=== PATIENT | male | born 1945 | race Caucasian/White ===

== ENCOUNTER 2018-08-28 05:51 | Day surgery (SDC) | payer MEDICARE, OTHER ==
[2018-08-28] MEDS ORDERED: DEMEROL 50 MG IJ ONE ×2 (05:52)
[2018-08-28] MEDS ORDERED: VERSED 5 MG/5 ML IV ONE (05:52)
[2018-08-28] MEDS ORDERED: Lactated Ringers 1,000 ML IV SCH (06:30)
--- NOTE | 2018-08-28 07:59 | HP ---
DATE OF SURGERY: 08/28/2018 ADMISSION DIAGNOSIS: Follow up for colon cancer. ANTICIPATED PROCEDURE: Colonoscopy. HISTORY OF PRESENT ILLNESS: The patient presents for three year follow up for colon cancer. He has a little bit of symptomatology but not much. PAST MEDICAL HISTORY: ALLERGIES: NONE. MEDICATIONS: Zantac. Aspirin. PAST SURGICAL HISTORY: Major right hemicolectomy. Cholecystectomy. Knee replacement. Eye surgery. SOCIAL HISTORY: Negative. FAMILY HISTORY: Negative. PHYSICAL EXAMINATION: VITAL SIGNS: Normal. CHEST: Clear. COR: Regular. ABDOMEN: No palpable organomegaly or mass. IMPRESSION: Follow up of colon cancer. The patient also had polyps. PLAN: Colonoscopic examination.
[2018-08-28 09:32] VITALS: O2SAT 97
[2018-08-28 09:53] VITALS: BP 147/66; PULSE 79
--- NOTE | 2018-08-28 09:58 | OP ---
SURGERY DATE/TIME: 08/28/2018 0815 PREOPERATIVE DIAGNOSIS: Follow up colon cancer, follow up polyps. POSTOPERATIVE DIAGNOSES: 1) One cecal polyp. 2) Thrombosing external hemorrhoid. PROCEDURES: 1) Colonoscopy complete to cecum. 2) Hot polypectomy x1. SURGEON: Josh Garcia M.D. ANESTHESIA: IV sedation 15 minutes monitored. INDICATION: A patient requiring evaluation. He had colon cancer about ten years ago. He also had polyps. His last exam was three years ago. DESCRIPTION OF PROCEDURE: He was taken to endoscopy. Left lateral decubitus position. IV sedation titrated. Oximetry kept over 90%. Comfort level was excellent. Anal digital examination satisfactory. There was a thrombosed external hemorrhoid located at 1000 hours. The scope was introduced. The remaining rectum shows a small amount of sigmoid was present. Anastomosis was normal. The scope advanced over to the cecum. A left hemicolectomy had been performed. Base of cecum, ileocecal valve and appendiceal orifice was normal except for a 6 mm polyp in the base of the cecum this was picked up and taken with hot biopsy forceps to extinction. Ascending colon, residual transverse colon was normal. Anastomosis normal. Rectum normal. IMPRESSION: Successful hot polypectomy x1. Follow up exam in three years. Additionally, the patient had some irritable bowel syndrome and taking a little bit of Imodium. There were no signs of any colitis today. Anastomosis was excellent. There was no irritation. The patient has about 60% of his original length and he does have a competent ileocecal valve. PLAN: Symptomatic treatment only.
== END 2018-08-28 10:05 | disposition home or self-care (01) ==
LOC: SDC 05:51
PROVIDERS: ATTEND Surgery
DX: Z08 Encounter for follow-up examination after completed treatment for malignant neoplasm (principal); Z12.11 Encounter for screening for malignant neoplasm of colon; D12.0 Benign neoplasm of cecum; K58.9 Irritable bowel syndrome, unspecified; K64.5 Perianal venous thrombosis; Z85.038 Personal history of other malignant neoplasm of large intestine; Z90.49 Acquired absence of other specified parts of digestive tract; Z86.010 Personal history of colon polyps
CPT/HCPCS: 88305; J2175; J2250

== ENCOUNTER 2020-11-17 10:48 | Day surgery (SDC) | payer MEDICARE, OTHER ==
[2020-11-17] MEDS ORDERED: Lactated Ringers 1,000 ML IV ONE (11:11)
[2020-11-17] MEDS ORDERED: Lactated Ringers 1,000 ML IV SCH (11:30)
[2020-11-17] MEDS ORDERED: DIPRIVAN 200 MG/20 ML IV ONE (12:41)
[2020-11-17] MEDS ORDERED: Xylocaine-Mpf 2% 5 Ml Vial ONE (12:41)
[2020-11-17 14:37] VITALS: BP 184/73; PULSE 52; O2SAT 97
[2020-11-17 15:44] LABS: 027 TOX PROD PRESUMPTIVE NEGATIVE (NEGATIVE); TOXIGENIC C. DIFF ORG NEGATIVE (NEGATIVE)
--- NOTE | 2020-11-18 11:21 | OP ---
SURGERY DATE: 11/17/2020 SURGERY TIME: 1255 PREOPERATIVE DIAGNOSIS: 1. PATIENT HAS EPIGASTRIC PAIN, NAUSEA, FULLNESS, HISTORY OF REFLUX. 2. HE HAS A CHANGE IN BOWEL HABITS. HE HAS SIGNIFICANT DIARRHEA. HE HAS A HISTORY OF COLON CANCER. POSTOPERATIVE DIAGNOSIS: 1. NEARLY HEALED ULCERS. 2. PRESBYESOPHAGUS. 3. ILEOCECAL VALVE ULCER. 4. NORMAL ANASTOMOSIS. PROCEDURE: 1. EGD with cold biopsy. 2. Colonoscopy with cold biopsy. SURGEON: Josh Garcia M.D. ANESTHESIA: MAC. COMPLICATIONS: None. CONDITION: Stable. INDICATION: Patient has had both upper and lower issues. They have not resolved. His diarrhea improved slightly with Flagyl. He still has his fullness in the upper abdomen and some in the lower abdomen. He has epigastric pain. He has some reflux symptoms. He has a history of colon cancer. He currently has severe diarrhea. OPERATIVE PROCEDURE: He was taken to endoscopy. Left lateral decubitus position. Phrenoesophageal junction cannulated. Esophagus normal down to the esophagogastric junction. Small rim of esophagitis grade 2/4. No hiatal hernia. Fundus/body satisfactory. Patient had multiple prepyloric ulcers which were nearly healed. A medical detail representative biopsy for H-pylori. Pylorus satisfactory. Duodenal bulb satisfactory. Second portion satisfactory. Scope withdrawn, looped upon itself. No hiatal hernia. Anal digital examination satisfactory. Stool sent for Clostridium difficile, O&P, and stool pathogens. Rectum normal. Rectocolonic anastomosis normal. Descending colon/splenic flexure gently curved. Transverse colon/hepatic flexure normal. Descending colon, base of the cecum. The ileocecal valve was slightly prominent and there was a 1 cm ulcer on the ileocecal valve. Just a cm away from this, a medical detail representative biopsy was taken. The appendiceal orifice was normal. The base of the cecum normal, but this ileocecal valve just seemed a little prominent, almost inflamed. The ascending colon above this seemed satisfactory. Hepatic, transverse, splenic, descending, anastomosis, rectum, anus. The patient tolerated the procedure satisfactory. He is already on some Pepcid. Azulfidine 500 mg PO bid was added to the regimen. The patient should check back with the office on his improvement or failure.
== END 2020-11-17 14:30 | disposition home or self-care (01) ==
LOC: SDC 10:48
PROVIDERS: ATTEND Surgery
DX: K63.3 Ulcer of intestine (principal); K22.8 Other specified diseases of esophagus; R19.7 Diarrhea, unspecified; R10.13 Epigastric pain; R11.0 Nausea; E11.9 Type 2 diabetes mellitus without complications; Z79.899 Other long term (current) drug therapy; Z79.4 Long term (current) use of insulin; Z85.038 Personal history of other malignant neoplasm of large intestine
CPT/HCPCS: 87081; 87328; 87329; 87493; 99100; J2704

== ENCOUNTER 2022-03-15 05:50 | Day surgery (SDC) | payer MEDICARE, OTHER ==
--- NOTE | 2022-03-13 15:08 | HP ---
DATE OF SURGERY: 03/15/2022 HISTORY OF PRESENT ILLNESS: The patient is a 77-year-old male presented for colonoscopy. The last colonoscopy was three years ago. The patient has a personal history of colon cancer and he got resection 21 years ago. He denies any GI complaints at this time. PAST MEDICAL HISTORY: Hypertension, gastroesophageal reflux disease, heart disease, chronic obstructive pulmonary disease, colon cancer. PAST SURGICAL HISTORY: Cataracts. Knee replacement. Cholecystectomy. Colon resection. ALLERGIES: NKDA. MEDICATIONS: Aspirin, Pepcid, gabapentin, ibuprofen, Singulair, vitamin D, loratadine, atenolol, sulfasalazine, hydrochlorothiazide. FAMILY HISTORY: None reported. SOCIAL HISTORY: Former smoker. REVIEW OF SYSTEMS: CONSTITUTIONAL: Denies fever or chills. CHEST: Denies shortness of breath. CVS: Denies chest pain. ABDOMEN: Denies abdominal pain. PHYSICAL EXAMINATION: GENERAL: No acute distress. CHEST: Nonlabored. No shortness of breath. CVS: Regular rate and rhythm. ABDOMEN: Soft. IMPRESSION: History of colon cancer. PLAN: Colonoscopy with Dr. Josh Garcia. As dictated by Isabel Vega NP.
[2022-03-15] MEDS ORDERED: Lactated Ringers 1,000 ML IV SCH (06:30)
[2022-03-15] MEDS ORDERED: DIPRIVAN 200 MG/20 ML IV ONE ×2 (09:06→09:25)
[2022-03-15 10:11] VITALS: BP 162/81; PULSE 66; O2SAT 98
--- NOTE | 2022-03-15 10:24 | OP ---
SURGERY DATE/TIME: 03/15/2022 0858 PREOPERATIVE DIAGNOSES: 1) Follow up colon cancer. 2) Diarrhea. POSTOPERATIVE DIAGNOSES: 1) Successful polypectomy x1. 2) Successful stool sampling for clostridium difficile, ova and parasite, stool pathogens. PROCEDURES: 1) Colonoscopy complete to cecum. 2) Hot polypectomy ascending colon 6 mm. 3) Stool samples for clostridium difficile, ova and parasite, stool pathogens. SURGEON: Josh Garcia M.D. ANALYSIS MGR: Mendez Fink D.O. ANESTHESIA: General. COMPLICATIONS: None. CONDITION: Stable. INDICATION: The patient presents for colonoscopy. DESCRIPTION OF PROCEDURE: Taken to endoscopy. Left lateral decubitus position. Anal digital examination satisfactory. Prostate satisfactory. Scope advanced to the cecum. Base of the cecum was excellent. There was a fairly large lipoma of the anterior lip of the valve which was satisfactory. Appendiceal orifice was well seen. The base was all well seen. Stool was sent for clostridium difficile, ova and parasite and stool pathogen. Coming up the ascending colon was satisfactory. Hepatic flexure satisfactory. Transverse colon satisfactory. Splenic flexure a 6 mm polyp taken with hot biopsy forceps. There was a little residual descending, a little residual sigmoid. Anastomosis satisfactory. Rectum, anus satisfactory. PLAN: Follow up two years.
[2022-03-15 12:26] LABS: 027 TOX PROD PRESUMPTIVE NEGATIVE (NEGATIVE); TOXIGENIC C. DIFF ORG NEGATIVE (NEGATIVE)
== END 2022-03-15 10:30 | disposition home or self-care (01) ==
LOC: SDC 05:50
PROVIDERS: ATTEND Surgery
DX: Z08 Encounter for follow-up examination after completed treatment for malignant neoplasm (principal); Z85.038 Personal history of other malignant neoplasm of large intestine; R19.7 Diarrhea, unspecified; D12.4 Benign neoplasm of descending colon
CPT/HCPCS: 87045; 87046; 87328; 87329; 87493; 99100; J2704